=== PATIENT | female | born 1955 | race Hispanic/Latino ===

== ENCOUNTER → 2023-04-27 | Outpatient (CLI) | payer OTHER ==
[2023-04-27 16:38] LABS: CHOLESTEROL 225 mg/dL (<200); HDL CHOLESTEROL 54 mg/dL (35-85); LDL DIRECT 124 mg/dL (0-99); TRIGLYCERIDES 201 mg/dL (30-200)
== END | disposition home or self-care (01) ==
LOC: LAB 11:13
PROVIDERS: ATTEND Internal Medicine Cardiovascular Disease
DX: E78.5 Hyperlipidemia, unspecified (principal)
CPT/HCPCS: 36415; 80061

== ENCOUNTER → 2023-05-31 | Outpatient (CLI) | payer OTHER | END | disposition home or self-care (01) | LOC: SHCH 14:08 → EDUNIT# 14:30 | PROVIDERS: ATTEND Internal Medicine Cardiovascular Disease | DX: I08.0 Rheumatic disorders of both mitral and aortic valves (principal); R01.1 Cardiac murmur, unspecified | CPT/HCPCS: 93306 ==

== ENCOUNTER → 2023-09-13 | Outpatient (CLI) | payer OTHER ==
[2023-09-13 13:15] LABS: CHOLESTEROL 283 mg/dL (<200); HDL CHOLESTEROL 65 mg/dL (35-85); LDL DIRECT 180 mg/dL (0-99); TRIGLYCERIDES 213 mg/dL (30-200)
== END | disposition home or self-care (01) ==
LOC: LAB 09:35
PROVIDERS: ATTEND Internal Medicine Cardiovascular Disease
DX: E78.5 Hyperlipidemia, unspecified (principal)
CPT/HCPCS: 36415; 80061

== ENCOUNTER → 2025-03-26 | Outpatient (CLI) | payer OTHER ==
[~2025-03-26] MED LIST: IOHEXOL 350 MG/ML 100ML INFUS..BTL IV ONE
--- NOTE | 2025-04-02 12:18 | CARDIOLOGY ---
RAD REPORT: CORNARY CT ANGIO RADIOLOGY REPORT: CORONARY CT ANGIOGRAPHY DATE: Apr 02, 2025 QUALITY: Excellent CLINICAL HISTORY AND INDICATION: [ CAD ] TECHNIQUE: After obtaining a preliminary poultry tender image, contrast imaging performed on an [employer] [id number] scanner. A dedicated, limited window, coronary imaging protocol was used, with single breath-hold, retrospective ECG gating, and automated arrhythmia rejection. 100 cc of low osmolar contrast agent: Omnipaque 350 was delivered via a 18-gauge IV catheter in the right antecubital fossa, using a power injector and followed by 60 cc of normal saline bolus as a chaser. Collimated images were reformatted at 0.5 mm intervals, and sent to an offline independent workstation for interpretation, using 3D anatomic reconstructions: Curved multiplanar reconstructions, maximum intensity projections, and multiplanar imaging. No metoprolol was administered prior to scanning due to low baseline heart rate. 0.4 mg SL nitroglycerin was given. CORONARY ARTERY DESCRIPTIONS: The coronary arteries arise in normal position. Left main coronary artery: Normal caliber vessel that trifurcates into the LAD, ramus and LCx. No stenosis. Left anterior descending coronary artery: Normal caliber vessel and gives rise to diagonal and septal branches. There is mixed calcified and noncalcified plaque in the proximal LAD with 40-50% stenosis and in the mid LAD with 70-80% stenosis. Ramus intermedius artery: Normal caliber, no stenosis. Left circumflex coronary artery: Normal caliber, nondominant and gives rise to a large OM branch. No stenosis. Right coronary artery: Large, dominant vessel giving rise to the PL and PDA branches. There is calcified plaque in the distal RCA with 20-30% stenosis. CAD-RADs: 4A, severe stenosis of the mid LAD. Thoracic Aorta: Normal diameter. Zara Lima MD Cardiovascular Disease [facility] ZARA LIMA MD Apr 02, 2025 12:18
== END | disposition home or self-care (01) ==
LOC: RAH 08:35
PROVIDERS: ATTEND Internal Medicine Cardiovascular Disease
DX: I25.10 Atherosclerotic heart disease of native coronary artery without angina pectoris (principal); R07.9 Chest pain, unspecified
CPT/HCPCS: 75574; Q9967

== ENCOUNTER 2025-05-02 06:43 | Day surgery (SDC) | payer OTHER ==
[2025-04-30 12:45] LABS: IMMATURE GRANULOCYTE ABSOLUTE 0.05 K/uL (0-1); NUCLEATED RED BLOOD CELLS 0.0 % (0.0-0.19); PLATELET COUNT (AUTO) 238 K/uL (130-400); RED BLOOD CELL COUNT(AUTO) 4.61 MIL/uL (4.00-5.50); RED CELL DISTRIBUTION WIDTH 13.1 % (11.0-15.5); WHITE BLOOD COUNT (AUTO) 8.9 K/uL (4.8-10.8)
--- NOTE | 2025-04-30 12:48 | EKG ---
[facility] Test Date: 2025-04-30 Test Time: 12:18:49 Pat Name: JOAQUIN URIOSTEGUI Department: [facility] Room: [facility] Gender: F [employer] Worker: [id number] : 1955 Requested By: JOSUE SOMMERS Order Number: [id number] Reading MD: Denilson Alan Measurements Intervals [place] Rate: 71 P: 38 MT: 196 QRS: 5 QRSD: 80 T: 33 QT: 368 QTc: 400 Interpretive Statements Sinus rhythm No previous ECG available for comparison Electronically Signed On 05-03-2025 19:47:43 CDT by Denilson Alan Please click the below link to view image of tracing.
[2025-04-30 12:49] LABS: ADD UA MICROSCOPIC YES; APPEARANCE,URINE CLOUDY (CLEAR); GLUCOSE, URINE (UA) NEGATIVE (NEGATIVE); LEUKOCYTE ESTERASE ,URINE NEGATIVE Leu/uL (NEGATIVE); NITRATE,URINE NEGATIVE (NEGATIVE); OCCULT BLOOD,URINE NEGATIVE (NEGATIVE)
[2025-04-30 12:55] LABS: INR 1.04 (0.85-1.15)
[2025-04-30 13:02] LABS: SQUAMOUS EPITHELIAL CELL,UR FEW /HPF (0-2)
[2025-04-30 13:04] LABS: CREATININE 0.8 mg/dL (0.5-1.0); GLOMERULAR FILTR. RATE CALC 79.0 mL/min (>90); GLUCOSE,RANDOM 125.0 mg/dL (70-105); SODIUM SERUM 142.0 mmol/L (136-145); UREA NITROGEN, BLOOD 16.0 mg/dL (7-18)
[2025-04-30 13:15] VITALS: BP 147/78; PULSE 66; RESP 17; TEMP 97.4
--- NOTE | 2025-05-01 12:08 | HMCIMG ---
EXAM: CR Chest, 1 views. CLINICAL HISTORY: Cough. COMPARISON: None provided. FINDINGS: The lungs show no infiltrate or other acute findings. No pleural effusion or pneumothorax. The cardiomediastinal silhouette is within normal limits. No acute osseous abnormality. IMPRESSION: 1. No acute cardiopulmonary pathology is evident. /[place]
[2025-05-02] VITALS (11 sets, daily range): BP systolic 112–130; BP diastolic 54–83; PULSE 59–79; RESP 10–16; TEMP 97.2–97.8
[~2025-05-02] VITALS: Ht 160 cm; Wt 70.9 kg
[~2025-05-02 06:43] MED LIST changes: +ASPI-1197 PO; +ATOR10 PO; +EZET10TA80 PO; +FLUT16H NASAL; -IOHEXOL 350 MG/ML 100ML INFUS..BTL IV ONE; +LORA5TAB9 PO; +MELO-106 PO
[2025-05-02] MEDS: 0.9%NACL 1000ML 1,000 ML IV SCH (08:11)
[2025-05-02] MEDS ORDERED: LIDOCAINE HCL 400MG/20ML VIAL ONE ×2 (08:37→11:19)
[2025-05-02] MEDS ORDERED: IOHEXOL 350 MG/ML 100ML INFUS..BTL IV ONE ×2 (08:37→11:19)
[2025-05-02] MEDS ORDERED: NITROGLYCERIN 50MG VIAL ONE ×2 (08:38→11:19)
[2025-05-02] MEDS ORDERED: HEParin-NS 1,000 UNIT/500 ML 0 ML IV ONE (08:38)
--- NOTE | 2025-05-02 09:35 | NUR ---
URINARY: VOIDED 100CC CLEAR YELLOW COLOR URINE PER BEDPAN WITHOUT DIFFICULTY
[2025-05-02] MEDS ORDERED: HEParin-NS 1,000 UNIT/500 ML 1,000 ML IV ONE (11:19)
[2025-05-02] MEDS ORDERED: MIDAZOLAM HCL 1 MG/ML 2ML VIAL ONE ×3 (11:44→14:27)
[2025-05-02] MEDS ORDERED: HEParin-NS 1,000 UNIT/500 ML 500 ML IV ONE (13:18)
[2025-05-02] MEDS ORDERED: ASPIRIN 325MG EC TAB PO ONE (14:33)
[2025-05-02] MEDS ORDERED: GLUCAGON 1MG KIT 1 MG ML IM PRN (15:00)
[2025-05-02] MEDS ORDERED: DEXTROSE 50%-WATER 50 ML DISP.SYRIN IV PRN (15:00)
[2025-05-02] MEDS ORDERED: 0.9%NACL 1000ML 1,000 ML IV SCH (15:00)
--- NOTE | 2025-05-02 15:17 | PRN ---
PROCEDURE NOTE Indications: Chest pain, CCS II symptoms Abnormal coronary CTA done on 04/02/2025 [facility] Procedures: LHC, coronary angiogram, OCT of the LAD, PCI with balloon angioplasty and drug coated balloon angioplasty of the diagonal 1, PCI with balloon angioplasty and ANALI placement in the proximal to mid and mid LAD, femoral angiogram in the Introduction: After informed written consent was obtained, the patient was brought to the Catheterization Lab in the usual fasting state. Following sterile prep and drape, a time out was performed, then moderate sedation was administered, 1mg of Versed and 50mcg of Fentanyl, then 1% Lidocaine was infiltrated into the right femoral groin. Using a Modified Seldinger technique, a 6Fr Sheath was inserted into the right common femoral artery. While under fluoroscopic guidance, diagnostic coronary catheters were advanced over a wire into the central circulation where they were aspirated, flushed and placed to pressure monitoring, once the wire was removed. Coronary Angio: The left and right coronary arteries were engaged with appropriate catheters and angiography was performed under continuous pressure monitoring. Left Heart Catheterization: A JR4 catheter was inserted into the LV and the pressure was recorded, then the catheter was removed from the LV. Cardiac Findings: Right dominant system LM: Large caliber vessel with mild luminal irregularities. The vessel bifurcates into the LAD and LCX. LAD: Medium caliber vessel with diffuse 70-80% stenosis in the proximal to mid and mid LAD. SANTA 3 blood flow distally. Diagonal 1: Small caliber vessel with 80% stenosis in the ostial segment of the vessel LCx: Medium caliber vessel with mild luminal irregularities. High OM1: Medium caliber vessel with 30% stenosis in the ostial segment of the vessel OM2: Medium caliber vessel with mild luminal irregularities RCA: Large caliber vessel with 50% stenosis in the ostial RCA and 20% stenosis of the mid RCA. RPDA: Medium caliber vessel with mild luminal irregularities. RPLV: Medium caliber vessel with mild luminal irregularities LVEDP: 16mmHg Medications given: Versed 3mg, Fentanyl 100mcg, heparin 75 units/kg x1 dose, aspirin 325 mg x 1 dose, and clopidogrel 600 mg x 1 dose, nitroglycerin 200 mcg x 1 dose Coronary Intervention: Guide catheter: XB 3.5 Guidewire: 0.014 run-through and 0.014 BMW After reviewing the above-mentioned findings the decision was made to intervene on the LAD and the diagonal 1. The patient was administered the above-mentioned medications. We then advanced the XB 3.5 guide catheter and 0.014 run-through guide wire into the ostium of the left main. We then advanced the run-through guidewire across the areas stenosis and into the distal LAD. We then performed OCT of the LAD to assess the degree of stenosis, the type of plaque within the arterial wall, and the length of the stenosis. We then advanced a 2nd wire, 0.014 BMW guidewire into the diagonal 1. We then performed successful balloon angioplasty (2.0 x 10 mm) and drug coated balloon angioplasty ([place] scientific agent 2.0 x 15 mm) in the ostial diagonal 1. We then performed successful balloon angioplasty (2.0 x 30 mm) and ANALI placement (Xience skypoint 2.5 x 15 mm and 2.25 x 38 mm) in the proximal to mid and mid LAD. The stents were post dilated using an NC 2.75 x 15 mm balloon achieving optimal results. Repeat angiography then revealed widely patent stents in the proximal to mid and mid LAD, a widely patent diagonal 1, and SANTA 3 blood flow distally. The guidewires and XB 3.5 guide catheter were then removed. The patient tolerated the procedure well and without issue. Complications: None Conscious Sedation Monitoring: Under my direct order and supervision, medication for moderate conscious sedation was administered by the nursing staff and the patients level of consciousness and physiological status was monitored by an independent trained nurse. Closure of Access Site: After the case completed the sheath was pulled and a 6Fr Angioseal was deployed in the right common femoral artery without complication. Conclusion: 1. 1V + branch vessel CAD, 70-80% stenosis in the proximal to mid and mid LAD, assessed with OCT, status post successful treatment with balloon angioplasty and ANALI placement (Xience Skypoint 2.5 x 15 mm and 2.25 x 38 mm), and 80% stenosis in the ostial diagonal 1 status post successful treatment with balloon angioplasty and drug coated balloon angioplasty, resulting in widely patent arteries, without dissection, or perforation, and SANTA 3 blood flow distally. 2. Nonobstructive CAD in the RCA and OM1 3. Chest pain 4. Abnormal coronary CTA done on 04/02/2025 Recommendation: 1. Continue goal-directed medical therapy 2. Start clopidogrel 75 mg daily. Continue aspirin 81 mg daily. The patient will remain on DAPT for a minimum of six months and optimally one year. 3. Groin precautions 4. 4 hours of bedrest. 5. Start NS at 100 mL/hour x3 hours. 6. Okay to DC once bed restless complete in the right groin is soft, and free of bruising, bleeding, and or hematoma formation. 7. No driving for the next 48 hours. 8. No heavy lifting or strenuous exercise for the next 2 weeks. 9. Please have the patient follow up with Dr. Healy in 1-2 weeks. JOSUE HEALY MD May 02, 2025 15:17
--- NOTE | 2025-05-02 19:05 | NUR ---
PATIENT DISCHARGED FROM FACILITY VIA WHEELCHAIR BY NURSE AND ASSISTED INTO PRIVATE VEHICLE DRIVEN BY FRIEND
== END 2025-05-02 19:05 | disposition home or self-care (01) ==
LOC: DAH 06:43
PROVIDERS: ATTEND Internal Medicine Cardiovascular Disease
DX: R94.39 Abnormal result of other cardiovascular function study (principal); I25.10 Atherosclerotic heart disease of native coronary artery without angina pectoris; R07.9 Chest pain, unspecified; E78.49 Other hyperlipidemia; Z79.82 Long term (current) use of aspirin; Z90.710 Acquired absence of both cervix and uterus; Z83.3 Family history of diabetes mellitus; Z82.49 Family history of ischemic heart disease and other diseases of the circulatory system; Z79.899 Other long term (current) drug therapy
CPT/HCPCS: 80048; 83880; 85025; 85610; 85730; 81001; 36415; 71045; 93005; 92978; 93458; 92921; 99156; 99157 ×6; 85347 ×2; A4223 ×3; C1769 ×5; C1894 ×3; C1713; C1725 ×3; C1760; C1887 ×2; Q9965 ×2; C1874 ×2; J3010 ×2; J3490 ×3; J7030; J1644 ×3; J2250 ×3; Q9967; A4215; A4222; A4221; A4663; A4216; A4606; C9600; 36140; 92920